=== PATIENT | female | born 1990 | race Caucasian/White ===

== ENCOUNTER 2016-09-24 13:27 | Emergency (ER) | payer SELFPAY ==
[2016-09-24 13:39] VITALS: BP 111/80
--- NOTE | 2016-09-24 13:40 | ER Document Report ---
ED Medical Screen (RME) - General Stated Complaint: POSSIBLE HAND LACERATION Notes: 26 yo female c/o laceration to right 4th knuckle. cut on broken glass. bleeding controlled. Tetnus UTD. - Related Data Allergies/Adverse Reactions: No Known Allergies Allergy (Verified 09/24/16 13:36) Past Medical History - Immunizations Hx Diphtheria, Pertussis, Tetanus Vaccination: No
[2016-09-24] MEDS ORDERED: LIDOCAINE 1% INJ-PF (10 MG/ML) 30 ML SDV INJ ONE (14:35)
--- NOTE | 2016-09-24 15:51 | ER Document Report ---
ED Wound - General Chief Complaint: Laceration Stated Complaint: POSSIBLE HAND LACERATION Mode of Arrival: Ambulatory Information source: Patient Notes: 26-year-old female presents to the emergency department complaining of right hand laceration. Patient reports accidentally struck a window with the top/ dorsal aspect of her right hand and lacerated her hand just above the fourth finger with a piece of glass. Denies foreign body, weakness, numbness, tingling , or color changes. States last tetanus vaccination was within the last 5 years. TRAVEL OUTSIDE OF THE [place] IN LAST 30 DAYS: No - HPI Patient complains to provider of: Laceration Occurred: Just prior to arrival Onset/Duration: Sudden Quality of pain: Achy Severity: Mild Pain Level: 2 Context: Injury, Spontaneous Skin Temperature: Warm Skin Color: Normal, [place] Capillary refill: < 3 seconds Sensations intact: Yes Associated Symptoms: None - Related Data Allergies/Adverse Reactions: No Known Allergies Allergy (Verified 09/24/16 13:36) Past Medical History - General Information source: Patient - Social History Smoking Status: Current Some Day Smoker Chew tobacco use (# tins/day): No Frequency of alcohol use: Occasional Drug Abuse: None Lives with: Family Family History: Reviewed & Not Pertinent Patient has suicidal ideation: No Patient has homicidal ideation: No - Medical History Medical History: Negative Surgical Hx: Negative - Immunizations Hx Diphtheria, Pertussis, Tetanus Vaccination: Yes Review of Systems - Review of Systems Constitutional: No symptoms reported EENT: No symptoms reported Cardiovascular: No symptoms reported Respiratory: No symptoms reported Gastrointestinal: No symptoms reported Genitourinary: No symptoms reported Female Genitourinary: No symptoms reported Musculoskeletal: See HPI Skin: See HPI Hematologic/Lymphatic: No symptoms reported Neurological/Psychological: No symptoms reported -: Yes All other systems reviewed and negative Physical Exam - Vital signs Vitals: Temp Pulse Resp BP Pulse Ox 98.3 F 79 16 111/80 99 09/24/16 13:39 09/24/16 13:39 09/24/16 13:39 09/24/16 13:39 09/24/16 13:39 Interpretation: Normal - General General appearance: Appears well, Alert In distress: None - HEENT Head: Normocephalic, Atraumatic Eyes: Normal Pupils: PERRL - Respiratory Respiratory status: No respiratory distress Chest status: Nontender Breath sounds: Normal Chest palpation: Normal - Cardiovascular Rhythm: Regular Heart sounds: Normal auscultation Murmur: No Pulses: Normal: Radial Normal capillary refill: Yes - Abdominal Inspection: Normal Distension: No distension Bowel sounds: Normal Tenderness: Nontender Organomegaly: No organomegaly - Back Back: Normal, Nontender - Extremities General upper extremity: Normal inspection, Nontender, Normal color, Normal ROM , Normal strength, Normal temperature. No: Tender, Edema General lower extremity: Normal inspection, Normal color, Normal ROM, Normal weight bearing Hand: Laceration - Approximately 3 cm superficial linear laceration to dorsal aspect of right hand just proximal to fourth MCP joint. No foreign body. Full active and passive range of motion. Immediate capillary refill and sensation intact., No evidence of FB. No: Normal, Nontender, Tender, Abrasion, Deformity , Dislocation, Ecchymosis, Instability, Nail injury, No evidence of human bite, Swelling, Tendon deficit, Other - Neurological Neuro grossly intact: Yes Cognition: Normal Orientation: AAOx4 [place] Coma Scale Eye Opening: Spontaneous [place] Coma Scale Verbal: Oriented [place] Coma Scale Motor: Obeys Commands [place] Coma Scale Total: 15 Speech: Normal Motor strength normal: LUE, RUE, LLE, RLE Sensory: Normal - Psychological Associated symptoms: Normal affect, Normal mood - Skin Skin Temperature: Warm Skin Moisture: Dry Skin Color: Normal Course - Re-evaluation Re-evalutation: 09/24/16 15:49 Patient hemodynamically stable, in no distress, afebrile. Full range of motion with no suggestion of osseous/tendon/ligament injury. Wound thoroughly irrigated with no foreign body noted and wound edges approximated with interrupted sutures. Patient tolerated well. Neurovascular function intact. Home care, follow-up with pcp, and ED return precautions discussed with patient who verbalized understanding and agrees with plan. - Vital Signs Vital signs: Temp Pulse Resp BP Pulse Ox 98.3 F 79 16 111/80 99 09/24/16 13:39 09/24/16 13:39 09/24/16 13:39 09/24/16 13:39 09/24/16 13:39 Procedures - Laceration/Wound Repair Right Hand Time completed: 15:30 Wound length (cm): 3 Wound's Depth, Shape: Superficial, Linear Laceration pre-procedure: Sterile PPE donned, Sterile drapes applied Anesthetic type: 1% Lidocaine Volume Anesthetic (mLs): 3 Wound explored: Clean, No foreign body removed Irrigated w/ Saline (mLs): 1,000 Wound Debrided: Minimal Wound Repaired With: Sutures Suture Size/Type: 4:0, Nylon Number of Sutures: 5 Layer Closure?: No Post-procedure wound care: Sterile dressing applied - with bacitracin ointment Post-procedure NV exam normal: Yes Complications: No Hands back picture: 1 - laceration Discharge - Discharge Clinical Impression: Hand laceration Qualifiers: Encounter type: initial encounter Laterality: right Qualified Code(s): S61.411A - Laceration without foreign body of right hand, initial encounter Condition: Stable Disposition: HOME, SELF-CARE Additional Instructions: Hand Laceration A laceration on the hand can present special problems. It may be difficult to keep the wound dry. Motion of the fingers can disturb the healing edges. Your work may involve exposure to damaging chemicals or water. Keep the wound clean and dry. If you can't keep the cut dry, undisturbed, and free of chemical exposure, please discuss this with the doctor. If any water or chemical gets onto the dressing, remove it, blot the wound dry, then apply a fresh bandage. Dressings should be changed every day. If you feel the stitches pulling as you move the hand, a splint or other form of protection is needed. If any signs of infection occur (swelling, redness, increasing tenderness, red streaks, tender lumps in the armpit, or fever), see the doctor immediately. LACERATION CARE: Your laceration has been sutured to keep the skin edges aligned during healing. The time of suture removal depends on the nature and location of your cut. Please follow the care instructions the doctor has outlined for you and return for further care, according to the schedule you've been given. Keep the wound and dressing clean. Unless you were told otherwise, you may shower daily, blotting the wound dry with a clean, unused towel. At other times, If the dressing gets wet or blood soaked, remove it and blot the wound dry, then reapply a new dressing. Unless you were instructed otherwise, dressings should be changed at least daily. If any signs of infection occur (swelling, redness, drainage, increasing tenderness, red streaks, tender lumps in the armpit or groin above the laceration, or fever), see the doctor immediately. ANTIBIOTIC OINTMENT PROTECTION: After cleansing, you should apply a thin coating of antibiotic ointment ( Bacitracin, not Neosporin) to the wounds at least three times daily. This lessens infection risk, and may decrease the amount of scarring. Use a q-tip or dull butter knife, not your finger, to apply this ointment. Any debris or ooze which builds up in the ointment should be gently rubbed off with a sterile gauze pad. Harder crusting may need to be gently scrubbed off with a clean wash cloth with soap and warm water, perhaps applying a warm, wet wash cloth to the wound for ten minutes first. Development of redness, severe itching, or blistering may mean allergy to the ointment. See the doctor. Elevate the Injury Because of the nature of your injury, elevation will be helpful to reduce swelling. This also reduces infection risk in wounds. Keep the injury up above the level of your heart for at least the next 48 hours (or longer if the physician recommends it). Acetaminophen Acetaminophen may be taken for pain relief or fever control. It's much safer than aspirin, offering a wider range of "safe" dosages. It is safe during . Some brand names are Tylenol, Panadol, Datril, Anacin 3, Tempra, and Liquiprin. Acetaminophen can be repeated every four hours. The following are maximum recommended dosages: WEIGHT Dose Drops Elixir Chewable( 80mg) (LBS.) drprs=droppers tsp=teaspoon 6 40 mg .4 ml (1/2) 6-11 80 mg .8 ml (full) 1/2 tsp 1 tab 12-16 120 mg 1 1/2 drprs 3/4 tsp 1 1/2 tabs 17-23 160 mg 2 drprs 1 tsp 2 tabs 24-30 240 mg 3 drprs 1 1/2 tsp 3 tabs 30-35 320 mg 2 tsp 4 tabs 36-41 360 mg 2 1/4 tsp 4 1 /2 tabs 42-47 400 mg 2 1/2 tsp 5 tabs 48-53 480 mg 3 tsp 6 tabs 54-59 520 mg 3 1/4 tsp 6 1 /2 tabs 60-64 560 mg 3 1/2 tsp 7 tabs 65-70 600 mg 3 3/4 tsp 7 1 /2 tabs 71-76 640 mg 4 tsp 8 tabs 77-82 720 mg 4 1/2 tsp 9 tabs 83-88 800 mg 5 tsp 10 tabs >89 pounds or adults 650 mg to 900 mg Acetaminophen can be repeated every four hours. Maximum daily dose not to exceed 4000 mg. These maximum recommended dosages are slightly higher than the dosages written on the product container, but these dosages are very safe and well below the toxic dosage for acetaminophen. Use of Qino-Udz-Pfobibf Ibuprofen Ibuprofen (Advil, Nuprin, Medipren, Motrin IB) is an excellent, safe drug for fever and pain control. In addition, it has anti- inflammatory effects which may be beneficial, especially in the treatment of injuries. It's best to take ibuprofen with food. Persons with ulcer disease or allergy to aspirin should notify their physician of this before taking ibuprofen. Ibuprofen can be given every four to six hours, for a total of four doses daily. Age Pain or fever dose Antiinflammatory dose 6-8 yr 200 mg (1 tab) 200 mg (1 tab) 9-11 yr 200 mg (1 tab) 200-400 mg (1-2 tab) 11-14 yr 200-400 mg (1-2 tab) 400 mg (2 tab) 15-adult 400 mg (2 tab) 600 mg (3 tab) FOLLOW-UP CARE: Your sutures should be removed in 7 days. To facilitate a timely removal of your sutures, you may return to the Emergency Department at [facility]. You do not need to call for an appointment, but the best time to come in for suture removal is early in the morning. If you have been referred to another physician for follow-up care, call that physicians office for an appointment as you were instructed. If you experience a significant change in your laceration, or if you are concerned there may be an infection (swelling, redness, drainage, increasing tenderness, red streaks, tender lumps in the armpit or groin above the laceration, or fever) , return to the Emergency Department immediately re-evaluation. Forms: Return to Work
== END 2016-09-24 16:16 | disposition home or self-care (01) ==
LOC: ER 13:27
PROC: 0HQFXZZ Repair Right Hand Skin, External Approach (ICD-10-PCS; principal; 2016-09-24)
DX: S61.411A Laceration without foreign body of right hand, initial encounter (principal); W25.XXXA Contact with sharp glass, initial encounter; F17.200 Nicotine dependence, unspecified, uncomplicated
CPT/HCPCS: 99282

== ENCOUNTER 2020-06-16 19:01 | Emergency (ER) | payer SELFPAY ==
[2020-06-16 19:15] VITALS: BP 144/82
[2020-06-16] MEDS ORDERED: HYDROCODONE/ACETAMINOPHEN 5-325 MG (6 TAB/ER DISP) PO PRN (19:42)
[2020-06-16] MEDS ORDERED: CEPHALEXIN 500 MG CAPSULE PO ONE (19:42)
--- NOTE | 2020-06-16 20:20 | ER Document Report ---
HPI - HPI Patient complains to provider of: Finger infection Time Seen by Provider: 06/16/20 19:39 Onset/Duration: Worse Quality of pain: Achy Pain Level: 2 Context: Patient complains of infection around the nail of the right fifth finger for the past 4 days. Patient denies any injury. Patient denies any fever. Patient does acknowledge that she bites her nails. Exacerbated by: Movement Relieved by: Denies Similar symptoms previously: No - ROS ROS below otherwise negative: Yes Systems Reviewed and Negative: Yes All other systems reviewed and negative - CONSTITUTIONAL Constitutional: DENIES: Fever, Chills - REPRODUCTIVE LMP: current Reproductive: DENIES: : - MUSCULOSKELETAL Musculoskeletal: REPORTS: Extremity pain, Swelling - DERM Notes: Infection along the nail to right fifth finger Past Medical History - General Information source: Patient - Social History Smoking Status: Never Smoker Frequency of alcohol use: Occasional Drug Abuse: None Family History: Reviewed & Not Pertinent - Medical History Medical History: Negative Surgical Hx: Negative - Immunizations Hx Diphtheria, Pertussis, Tetanus Vaccination: No Vertical Provider Document - CONSTITUTIONAL Agree With Documented VS: Yes Exam Limitations: No Limitations General Appearance: WD/WN, No Apparent Distress - INFECTION CONTROL TRAVEL OUTSIDE OF THE [place] IN LAST 30 DAYS: No - HEENT HEENT: Atraumatic, Normocephalic - NECK Neck: Normal Inspection - RESPIRATORY Respiratory: No Respiratory Distress - CARDIOVASCULAR Pulses: Normal: Radial - MUSCULOSKELETAL/EXTREMETIES Musculoskeletal/Extremeties: MAEW, FROM, Tender - Tenderness to right fifth finger - NEURO Level of Consciousness: Awake, Alert, Appropriate Motor/Sensory: No Motor Deficit - DERM Integumentary: Warm, Dry, Abscess - Paronychia to nail margin of right fifth finger but no felon Course - Vital Signs Vital signs: Temp Pulse Resp BP Pulse Ox 98.3 F 86 16 144/82 H 98 06/16/20 19:14 06/16/20 19:14 06/16/20 19:14 06/16/20 19:14 06/16/20 19:14 Procedures - Incision and Drainage Right Finger 5th digit Type: Simple Blade size: 11 I&D procedure: Betadine prep applied Incision Method: Incision made by scalpel Amount/type of drainage: small amount purulent drainage Discharge - Discharge Clinical Impression: Encounter for incision and drainage procedure Paronychia of finger Qualifiers: Laterality: right Qualified Code(s): L03.011 - Cellulitis of right finger Condition: Stable Disposition: HOME, SELF-CARE Instructions: Cephalexin ([facility]), Paronychia ([facility]), Post Incision and Drainage Additional Instructions: Return immediately for any new or worsening symptoms Followup with your primary care provider, call tomorrow to make a followup appointment Keep wound covered as it continues to heal Wound culture is pending, we will call if you need any different treatment Prescriptions: Cephalexin Monohydrate [Keflex 500 mg Capsule] 500 mg PO Q6H 5 Days #20 capsule Referrals: [facility] [Provider Group] - Follow up as needed
== END 2020-06-16 20:26 | disposition home or self-care (01) ==
LOC: ER 19:01
DX: L03.011 Cellulitis of right finger (principal)
CPT/HCPCS: 87070; 87075; 87077; 87205; 99283